=== PATIENT | female | born 1990 | race Caucasian/White ===

== ENCOUNTER 2018-10-06 22:23 | Inpatient (IN) ==
--- NOTE | 2018-10-06 22:44 | Emergency Department Note ---
Disposition Clinical Impression: Suicidal ideation Depression Qualifiers: Depression Type: unspecified Qualified Code(s): F32.9 - Major depressive disorder, single episode, unspecified UTI (urinary tract infection) Qualifiers: Urinary tract infection type: site unspecified Hematuria presence: with hematuria Qualified Code(s): N39.0 - Urinary tract infection, site not specified Disposition: Admitted As Inpatient Condition: Good Time of Disposition: 00:53 General Adult HPI - General Stated complaint: SI Time Seen by Provider: 10/06/18 22:24 Source: patient, EMS Mode of arrival: EMS Limitations: no limitations Nursing Notes Reviewed: Yes Vital Signs Reviewed: Yes - History of Present Illness HPI Narrative: Patient is a 28 female that presents emergency department with suicidal ideation. Patient states that she has been feeling very depressed and does not want to live anymore. Patient states that she has been off her depression medication due to them being too expensive and she has been feeling well. Patient states that she does have a plan but she will not disclose it to anyone. Patient states that she has had previous attempts at harming herself including attempting to swerve into traffic. Patient states that she has never required admission. Patient states that her mother is a social security assessor and has not wanted her to be admitted before. Patient denies any ingestions. Patient denies any auditory or visual hallucinations. Patient denies any homicidal ideations. Pain Scale: 0 - Related Data Allergies Allergy/AdvReac Type Severity Reaction Status Date / Time Oxycodone Allergy Hallucinati Verified 09/20/18 12:05 ng prednisone Allergy Hallucinati Verified 09/20/18 12:05 ng All systems ED: reviewed and negative except as stated. Constitutional: Denies: fever Cardiovascular: Denies: chest pain Respiratory: Denies: dyspnea Gastrointestinal: Denies: abdominal pain Psychiatric: Reports: depression, suicidal thoughts. 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 Absent: EOMI - Neck Neck exam: Present: normal inspection, full ROM, trachea midline - Respiratory Respiratory exam: Present: normal lung sounds bilaterally. Absent: respiratory distress, wheezes - Cardiovascular Cardiovascular exam: Present: regular rate, normal rhythm, normal heart sounds, +S1, +S2 - Abdominal Exam Abdominal exam: Present: soft, Non-Tender, normal bowel sounds - Neurological Exam Neurological exam: Present: alert, oriented X3 - Psychiatric Psychiatric exam: Present: normal affect, normal mood - Skin Skin exam: Present: warm, dry, intact Course Vital Signs Temperature 98.3 F 10/06/18 22:27 Pulse Rate 87 10/06/18 22:27 Respiratory Rate 18 10/06/18 22:27 Blood Pressure 150/101 10/06/18 22:27 O2 Sat by Pulse Oximetry 99 10/06/18 22:27 Temperature 98.3 F 10/06/18 22:27 Pulse Rate 87 10/06/18 22:27 Respiratory Rate 18 10/06/18 22:27 Blood Pressure 150/101 10/06/18 22:27 O2 Sat by Pulse Oximetry 99 10/06/18 22:27 Oxygen Delivery Oxygen Delivery Room Air Medical Decision Making - MDM Narrative Medical decision making narrative: Due the patient's into the emergency department suicidal ideation basic laboratory testing and medical clearance will be performed here in the ER once this is been completed [facility] the psychiatric service will be contacted to evaluate the patient at bedside. Patient did have evidence of a possible urinary tract infection so the patient was given a dose of Keflex here in the emergency department. [facility] was contacted to notify them that the patient was medically cleared and able to be assessed at bedside. Patient was assessed by [facility] psychiatric team here at [facility] and they have recommended admission for the patient. Patient will be admitted to the hospital for psychiatric services. Nason slip has been filled out as on the chart. No further intervention is required here in the emergency department. Patient is stable and will be admitted at this time. - Medical Records Medical records reviewed: Yes I reviewed the patient's medical records. - Lab Data Lab results reviewed: Yes I reviewed the patient's lab results. Result diagrams: 10/06/18 22:52 10/06/18 22:52 Lab Results 10/06/18 10/06/18 10/06/18 Range/Units 22:52 22:52 23:17 WBC 11.9 H (4.3-11.1) K/mcL RBC 5.12 H (3.82-4.97) M/mcL Hgb 14.5 (11.5-15.4) g/dL Hct 43.2 (35.3-44.9) % MCV 84.4 (83.0-100.0) fL MCH 28.3 (28.0-33.3) pg MCHC 33.6 (31.6-35.5) g/dL RDW 12.3 (11.5-14.5) % Plt Count 397 (140-400) K/mcL MPV 9.5 (9.4-12.4) fL Immature Gran % 0.6 (0-4) % Seg Neutrophils % 70.3 % Lymphocytes % 21.9 % Monocytes % 6.0 % Eosinophils % 0.8 % Basophils % 0.4 % Neutrophils # 8.4 (1.6-8.9) K/mcL Lymphocytes # 2.6 (0.6-4.6) K/mcL Monocytes # 0.7 (0.0-1.3) K/mcL Eosinophils # 0.1 (0.0-0.6) K/mcL Basophils # 0.1 (0.0-0.2) K/mcL Sodium 138 (136-145) mEq/L Potassium 3.8 (3.5-5.1) mEq/L Chloride 106 (98-107) mEq/L Carbon Dioxide 23 (23-29) mEq/L BUN 8 (6-20) mg/dL Creatinine 0.50 L (0.60-1.20) mg/dL Est GFR ( Amer) > 60 (> 60) Est GFR (Non-Af Amer) > 60 (> 60) BUN/Creatinine Ratio 16 (6-26) Glucose 97 (70-105) mg/dL Calculated Osmolality 284 (280-300) Calcium 9.5 (8.6-10.3) mg/dL Urine Color Yellow (Yellow) Urine Clarity Cloudy A (Clear) Urine pH 6.0 (5.0-8.0) pH Units Ur Specific [place] 1.013 (1.010-1.025) Urine Protein Trace (Neg-Trace) mg/dL Urine Glucose (UA) Normal (Normal) mg/dL Urine Ketones Negative (Negative) mg/dL Urine Blood Trace H (Negative) Urine Nitrite Negative (Negative) Urine Bilirubin Negative (Negative) Urine Urobilinogen Normal (Normal) mg/dL Ur Leukocyte Esterase Large H (Negative) Urine Microscopic RBC 0-3 (0-3) per hpf Urine Microscopic WBC TNTC H (0-3) per hpf Ur Squamous Epith Cells Many H (None-Few) per lpf Urine Bacteria Moderate H (None-Few) per hpf Hyaline Casts None Seen (None-Few) per lpf Salicylates < 2.5 L (15.0-30.0) mg/dL Urine Opiates Screen (Courva=452) ng/mL Acetaminophen < 10 L (10-20) mcg/mL Ur Barbiturates Screen (Wfdiqh=231) ng/mL Ur Phencyclidine Scrn (Cutoff=25) ng/mL Ur Amphetamines Screen (Qiebrs=3571) ng/mL U Benzodiazepines Scrn (Hcfxam=842) ng/mL Urine Cocaine Screen (Cutoff= 300) ng/mL U Marijuana (THC) Screen (Cutoff = 50) ng/mL Ur Drug Screen Interp Ethyl Alcohol < 10 (Less than 10) mg/dL 10/06/18 Range/Units 23:17 WBC (4.3-11.1) K/mcL RBC (3.82-4.97) M/mcL Hgb (11.5-15.4) g/dL Hct (35.3-44.9) % MCV (83.0-100.0) fL MCH (28.0-33.3) pg MCHC (31.6-35.5) g/dL RDW (11.5-14.5) % Plt Count (140-400) K/mcL MPV (9.4-12.4) fL Immature Gran % (0-4) % Seg Neutrophils % % Lymphocytes % % Monocytes % % Eosinophils % % Basophils % % Neutrophils # (1.6-8.9) K/mcL Lymphocytes # (0.6-4.6) K/mcL Monocytes # (0.0-1.3) K/mcL Eosinophils # (0.0-0.6) K/mcL Basophils # (0.0-0.2) K/mcL Sodium (136-145) mEq/L Potassium (3.5-5.1) mEq/L Chloride (98-107) mEq/L Carbon Dioxide (23-29) mEq/L BUN (6-20) mg/dL Creatinine (0.60-1.20) mg/dL Est GFR ( Amer) (> 60) Est GFR (Non-Af Amer) (> 60) BUN/Creatinine Ratio (6-26) Glucose (70-105) mg/dL Calculated Osmolality (280-300) Calcium (8.6-10.3) mg/dL Urine Color (Yellow) Urine Clarity (Clear) Urine pH (5.0-8.0) pH Units Ur Specific [place] (1.010-1.025) Urine Protein (Neg-Trace) mg/dL Urine Glucose (UA) (Normal) mg/dL Urine Ketones (Negative) mg/dL Urine Blood (Negative) Urine Nitrite (Negative) Urine Bilirubin (Negative) Urine Urobilinogen (Normal) mg/dL Ur Leukocyte Esterase (Negative) Urine Microscopic RBC (0-3) per hpf Urine Microscopic WBC (0-3) per hpf Ur Squamous Epith Cells (None-Few) per lpf Urine Bacteria (None-Few) per hpf Hyaline Casts (None-Few) per lpf Salicylates (15.0-30.0) mg/dL Urine Opiates Screen Negative (Ifpavx=498) ng/mL Acetaminophen (10-20) mcg/mL Ur Barbiturates Screen Negative (Xrtogl=315) ng/mL Ur Phencyclidine Scrn Negative (Cutoff=25) ng/mL Ur Amphetamines Screen Negative (Kqtjke=2693) ng/mL U Benzodiazepines Scrn Negative (Ifshqi=213) ng/mL Urine Cocaine Screen Negative (Cutoff= 300) ng/mL U Marijuana (THC) Screen Negative (Cutoff = 50) ng/mL Ur Drug Screen Interp See Below Ethyl Alcohol (Less than 10) mg/dL Attestation Statement - Attestation Attestation: I, Wili El, examined this patient and my medical decision-making was reviewed with the EDGE STRIPPER/PA/Advanced Practice Nurse/Resident Physician. I agree with the documented findings, disposition and treatment plan as described except to the extent set forth below. 28-year-old female presents emergency Department with concerns of suicidal i deation. Patient states she had a plan to try to end her life today, she will discuss the plan that she had. She has not been taking her depression medications for many weeks because she cannot afford them. Patient denies recent attempts to end her life. Denies recent trauma. She made a comment to her mother that she was "done", mother who is a social security assessor called EMS to come and evaluate her. Patient was medically cleared and evaluated by behavioral health who agreed that she required inpatient treatment for her depression and suicidal ideation.
[2018-10-06 23:07] LABS: Basophils # 0.1 K/mcL (0.0-0.2); Basophils % 0.4 %; Eosinophils # 0.1 K/mcL (0.0-0.6); Eosinophils % 0.8 %; Hematocrit 43.2 % (35.3-44.9); Hemoglobin 14.5 g/dL (11.5-15.4); Immature Granulocytes % 0.6 % (0-4); Lymphocytes # 2.6 K/mcL (0.6-4.6); Lymphocytes % 21.9 %; Mean Corpuscular HGB Conc 33.6 g/dL (31.6-35.5); Mean Corpuscular Hemoglobin 28.3 pg (28.0-33.3); Mean Corpuscular Volume 84.4 fL (83.0-100.0); Mean Platelet Volume 9.5 fL (9.4-12.4); Monocytes # 0.7 K/mcL (0.0-1.3); Neutrophils # 8.4 K/mcL (1.6-8.9); Platelet Count 397 K/mcL (140-400); Red Blood Count 5.12 M/mcL (3.82-4.97); Red Cell Distribution Width 12.3 % (11.5-14.5); Segmented Neutrophils % 70.3 %
[2018-10-06 23:25] LABS: Bilirubin,Urine Negative (Negative); Blood,Urine Trace (Negative); Clarity,Urine Cloudy (Clear); Color,Urine Yellow (Yellow); Glucose,Urine (UA) Normal (Normal); Ketones,Urine Negative (Negative); Leukocyte Esterase,Urine Large (Negative); Nitrite,Urine Negative (Negative); Protein,Urine Trace mg/dL (Neg-Trace); Specific Gravity,Urine 1.013 (1.010-1.025); Urobilinogen,Urine Normal (Normal)
[2018-10-06 23:27] LABS: Acetaminophen < 10 mcg/mL (10-20); BUN/Creatinine Ratio 16 (6-26); Blood Urea Nitrogen 8 mg/dL (6-20); Calcium 9.5 mg/dL (8.6-10.3); Carbon Dioxide 23 mEq/L (23-29); Chloride 106 mEq/L (98-107); Ethanol < 10 mg/dL (Less than 10); Glucose 97 mg/dL (70-105); Osmolality,Calculated 284 (280-300); Potassium 3.8 mEq/L (3.5-5.1); Salicylate < 2.5 mg/dL (15.0-30.0); Sodium 138 mEq/L (136-145); eGFR For Non-African Americans > 60 (> 60)
[2018-10-06 23:28] LABS: Bacteria,Urine Moderate per hpf (None-Few); Hyaline Casts,Urine None Seen per lpf (None-Few); RBC,Urine 0-3 per hpf (0-3); Squamous Epithelial Cell,Urine Many per lpf (None-Few); WBC,Urine TNTC per hpf (0-3)
[2018-10-06] MEDS ORDERED: cephALEXin 250 MG CAPSULE PO STA (23:39)
[2018-10-06 23:41] LABS: Amphetamine Screen,Urine Negative ng/mL (Cutoff=1000); Barbiturate Screen,Urine Negative ng/mL (Cutoff=200); Benzodiazepines Screen,Urine Negative ng/mL (Cutoff=200); Cannabinoid Screen,Urine Negative ng/mL (Cutoff = 50); Cocaine Screen,Urine Negative ng/mL (Cutoff= 300); Opiate Screen,Urine Negative ng/mL (Cutoff=300); Phencyclidine Screen,Urine Negative ng/mL (Cutoff=25)
[2018-10-07] MEDS ORDERED: traZODone 50 MG TABLET PO PRN (01:08)
[2018-10-07] MEDS ORDERED: *HR* LORazepam 1 MG TABLET PO PRN (01:08)
[2018-10-07] MEDS ORDERED: Ibuprofen 400 MG TABLET PO PRN (01:08)
[2018-10-07] MEDS ORDERED: MOM Conc 10 ML UD.LIQ PO PRN (01:08)
[2018-10-07] MEDS ORDERED: *HR* LORazepam 2 MG/ML VIAL IM PRN (01:08)
[2018-10-07] MEDS ORDERED: hydrOXYzine pamoate 25 MG CAPSULE PO PRN (01:08)
[2018-10-07] MEDS ORDERED: Haloperidol Lactate 5 MG/ML VIAL IM PRN (01:08)
[2018-10-07] MEDS ORDERED: Mag Hydrox/Al Hydrox/Simeth 30 ML UDC PO PRN (01:08)
[2018-10-07] MEDS: cephALEXin 500 MG CAPSULE PO SCH ×2 (08:57→20:41)
--- NOTE | 2018-10-07 14:50 | Psychiatry History & Physical ---
Date of Encounter: 10/07/18 Time of Encounter: 14:30 History of Present Illness Patient Stated Chief Complaint: I was on Wellbtrin, I went off, I was going to kill myself Medicare Admission Attestation: For traditional Medicare patients the provided hospital inpatient services are reasonable and necessary and in the case of services not specified as inpatient-only under 42 CFR 419.22 (n), that they are appropriately provided as inpatient services in accordance 42 CFR 412.3. For Critical Access Hospital the patient may reasonably be expected to be discharged or transferred to a hospital within 96 hours after admission to the Critical Access Hospital. Admitted From: Emergency Dept Plans for Post Hospital Care: Home History of Present Illness: Ms. Nunes is a 28 year old female ID the patient is a 28-year-old single white female. Chief complaint I was on Wellbutrin since high school. History of present illness. The patient has been off and on the antidepressant most recently she cannot afford it. The patient was seen by Dr. Og until about 2011. He left practice and the patient was continued on Wellbutrin by her family doctor. The patient was also seen by another provider in the clinic and felt better. Patient has not been able to take Wellbutrin due to financial problems and insurance coverage. The patient has low self-esteem diminished interest guilt ruminations somatic concern decreased energy poor concentration and forgetfulness medium sleep increased suicidal ideation with plans her plan was to go find a gun and shoot herself she had no homicidal ideation she had no psychosis the patient did not have any of the features of camryn DI GAF AST past psychiatric history. The patient's suicidal ideation she previously. The road. Months ago she was going to shoot herself. A friend came in and she got rid of the gun. The patient used to have a problem drinking alcohol she is to go out every weekend. She had 2 drinks a couple weeks ago but has not had any sense. She does not use marijuana she does not use drugs abuse. Past medical history: Surgery. Patient's had 6 knee surgeries. 5 on the left she has no ACL detected from 2006 through 2012 she has 1 right. There is a long litany of problems associated with her knees. She has had her tonsils and adenoids taken out she said wisdom teeth removed Illnesses polycystic ovary disease recurrent yeast infections urinary tract infections she had a sleep study where she was diagnosed with sleep apnea but could not tolerate CPAP. She has an allergy to nickel she is found to peanuts. Certain other medicines. Oxycodone and prednisone. She is AB 0. She has not used any control believes that she has problems with infertility. She was placed on metformin for polycystic ovary d isease but developed loose bowels and could not take it. The patient takes ibuprofen 800 mg 3 times a day when necessary she Family history mother with depression on Wellbutrin maternal grandmother depressed on Wellbutrin. Dad with depression unknown treatment. Alcohol none suicide Drug use none. Social history patient was never she has no children she lives by herself. 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 She does not attend restorationist Review of systems is significant for recurrent yeast infections. In the past the patient was on Concerta 54 mg per day she was on Wellbutrin XL 300 mg per day Past Med Surg Social Fam HX - Past Medical History Medical history: non-contributory - Past Psychiatric History Psychiatric history: Reports: depression Family psychiatric history: Yes Family History of Suicide: None - Past Surgical History Surgical History: no surgical history, cholecystectomy, orthopedic, other - Social History Smoking Status: Never smoker Smokeless Tobacco Status: No Alcohol use: occasionally Drug use: none Occupational status: employed, student Current living situation: Home - Independent Activity Level: Independent ambulation Recent Out of Country Travel Within the Last 8 Weeks: No Exposure or Possible Exposure to Illness During Travel: No Medications & Allergies Ibuprofen 800 mg PO Q8H PRN 10/07/18 [History] Allergy/AdvReac Type Severity Reaction Status Date / Time Oxycodone Allergy Hallucinati Verified 09/20/18 12:05 ng prednisone Allergy Hallucinati Verified 09/20/18 12:05 ng Review of Systems Constitutional: Reports: other Eyes: Denies: eye pain, vision change Ears, Nose, Throat: Denies: ear pain, throat pain, dental pain, hearing loss, congestion Cardiovascular: Denies: chest pain, palpitations, dyspnea on exertion Respiratory: Denies: cough, dyspnea, wheezes Gastrointestinal: Denies: abdominal pain, nausea, vomiting, diarrhea, constipation Genitourinary female: Denies: urgency, dysuria, frequency, abnormal menses, dyspareunia Musculoskeletal: Denies: joint swelling, joint pain Integumentary: Denies: rash, lesions, pruritus Neurological: Denies: headache, weakness, numbness, memory loss Psychiatric: Reports: depression, abnormal sleep pattern, suicidal ideation, memory loss, irritability Endocrine: Denies: fatigue, heat or cold intolerance Hematologic/Lymphatic: Denies: easy bruising, lymphadenopathy Allergic/Immunologic: Denies: urticaria, itchy eyes Exam - HEENT Head exam IM: Present: atraumatic Eye exam IM: Present: EOMI, normal appearance, PERRL ENT exam IM: Present: normal exam - Neurological Neurological exam: Present: CN II-XII intact - Respiratory Respiratory exam IM: Present: CTAB - GI/Abdominal GI/Abdominal exam IM: Present: normal bowel sounds, soft. Absent: tenderness - Extremities Extremities exam IM: Present: full ROM - Skin Skin exam IM: Present: dry, warm - Constitutional Vitals: Temp Pulse Resp BP Pulse Ox 98 F 95 16 154/105 95 10/07/18 09:00 10/07/18 09:00 10/07/18 09:00 10/07/18 09:00 10/07/18 09:00 General appearance: age & developmentally appropriate, well-groomed, well- nourished - Musculoskeletal Gait: normal Station: relaxed Strength & Tone: normal for patient - Psychiatric Patient Orientation: Yes Person, Yes Time, Yes Place Level of alertness: Alert Behavior: calm, cooperative Psychomotor activity: Normal Eye Contact: Maintains Eye Contact Mood Description: Depressed Affect description: tearful, dysphoric Speech Volume: Normal, Soft/Quiet Speech pattern: normal rate, normal rhythm, normal tone, fluent, spontaneous Language & Vocabulary: consistent with education Thought Process: Linear, Goal Oriented Thought Content: Yes Suicidal ideation, No Homicidal ideation, No Overt delusions Perceptual Disturbances: No Auditory hallucinations, No Visual hallucinations Attention Span Ability: Capable of Focused Attention Memory Description: Grossly Intact Patient Reliability: Reliable Historian Fund of knowledge: Yes abstraction ability, Yes average, Yes aware of current events Intelligence Estimate: Average Judgment: Fair Insight: Partial Results - Drug Levels and Toxicology Drug Levels and Toxicology: Drug Levels and Toxicity 10/06/18 10/06/18 22:52 23:17 Urine Opiates Screen Negative Acetaminophen < 10 L Ur Barbiturates Screen Negative Ur Phencyclidine Scrn Negative Ur Amphetamines Screen Negative U Benzodiazepines Scrn Negative Urine Cocaine Screen Negative U Marijuana (THC) Screen Negative Ethyl Alcohol < 10 - Labs Labs: Laboratory Last Values WBC 11.9 K/mcL (4.3-11.1) H 10/06/18 22:52 RBC 5.12 M/mcL (3.82-4.97) H 10/06/18 22:52 Hgb 14.5 g/dL (11.5-15.4) 10/06/18 22:52 Hct 43.2 % (35.3-44.9) 10/06/18 22:52 MCV 84.4 fL (83.0-100.0) 10/06/18 22:52 MCH 28.3 pg (28.0-33.3) 10/06/18 22:52 MCHC 33.6 g/dL (31.6-35.5) 10/06/18 22:52 RDW 12.3 % (11.5-14.5) 10/06/18 22:52 Plt Count 397 K/mcL (140-400) 10/06/18 22:52 MPV 9.5 fL (9.4-12.4) 10/06/18 22:52 Immature Gran % 0.6 % (0-4) 10/06/18 22:52 Seg Neutrophils % 70.3 % 10/06/18 22:52 Lymphocytes % 21.9 % 10/06/18 22:52 Monocytes % 6.0 % 10/06/18 22:52 Eosinophils % 0.8 % 10/06/18 22:52 Basophils % 0.4 % 10/06/18 22:52 Neutrophils # 8.4 K/mcL (1.6-8.9) 10/06/18 22:52 Lymphocytes # 2.6 K/mcL (0.6-4.6) 10/06/18 22:52 Monocytes # 0.7 K/mcL (0.0-1.3) 10/06/18 22:52 Eosinophils # 0.1 K/mcL (0.0-0.6) 10/06/18 22:52 Basophils # 0.1 K/mcL (0.0-0.2) 10/06/18 22:52 Sodium 138 mEq/L (136-145) 10/06/18 22:52 Potassium 3.8 mEq/L (3.5-5.1) 10/06/18 22:52 Chloride 106 mEq/L (98-107) 10/06/18 22:52 Carbon Dioxide 23 mEq/L (23-29) 10/06/18 22:52 BUN 8 mg/dL (6-20) 10/06/18 22:52 Creatinine 0.50 mg/dL (0.60-1.20) L 10/06/18 22:52 Est GFR ( Amer) > 60 (> 60) 10/06/18 22:52 Est GFR (Non-Af Amer) > 60 (> 60) 10/06/18 22:52 BUN/Creatinine Ratio 16 (6-26) 10/06/18 22:52 Glucose 97 mg/dL (70-105) 10/06/18 22:52 Calculated Osmolality 284 (280-300) 10/06/18 22:52 Calcium 9.5 mg/dL (8.6-10.3) 10/06/18 22:52 Urine Color Yellow (Yellow) 10/06/18 23:17 Urine Clarity Cloudy (Clear) A 10/06/18 23:17 Urine pH 6.0 pH Units (5.0-8.0) 10/06/18 23:17 Ur Specific [place] 1.013 (1.010-1.025) 10/06/18 23:17 Urine Protein Trace mg/dL (Neg-Trace) 10/06/18 23:17 Urine Glucose (UA) Normal mg/dL (Normal) 10/06/18 23:17 Urine Ketones Negative mg/dL (Negative) 10/06/18 23:17 Urine Blood Trace (Negative) H 10/06/18 23:17 Urine Nitrite Negative (Negative) 10/06/18 23:17 Urine Bilirubin Negative (Negative) 10/06/18 23:17 Urine Urobilinogen Normal mg/dL (Normal) 10/06/18 23:17 Ur Leukocyte Esterase Large (Negative) H 10/06/18 23:17 Urine Microscopic RBC 0-3 per hpf (0-3) 10/06/18 23:17 Urine Microscopic WBC TNTC per hpf (0-3) H 10/06/18 23:17 Ur Squamous Epith Cells Many per lpf (None-Few) H 10/06/18 23:17 Urine Bacteria Moderate per hpf (None-Few) H 10/06/18 23:17 Hyaline Casts None Seen per lpf (None-Few) 10/06/18 23:17 Salicylates < 2.5 mg/dL (15.0-30.0) L 10/06/18 22:52 Urine Opiates Screen Negative ng/mL (Rdwstv=172) 10/06/18 23:17 Acetaminophen < 10 mcg/mL (10-20) L 10/06/18 22:52 Ur Barbiturates Screen Negative ng/mL (Alzlwy=711) 10/06/18 23:17 Ur Phencyclidine Scrn Negative ng/mL (Cutoff=25) 10/06/18 23:17 Ur Amphetamines Screen Negative ng/mL (Oebjys=7968) 10/06/18 23:17 U Benzodiazepines Scrn Negative ng/mL (Ghhsuz=446) 10/06/18 23:17 Urine Cocaine Screen Negative ng/mL (Cutoff= 300) 10/06/18 23:17 U Marijuana (THC) Screen Negative ng/mL (Cutoff = 50) 10/06/18 23:17 Ur Drug Screen Interp See Below 10/06/18 23:17 Ethyl Alcohol < 10 mg/dL (Less than 10) 10/06/18 22:52 Assessment and Plan (1) Major depressive disorder, recurrent severe without psychotic features Current visit: Yes Status: Acute Plan: Admit inpatient for safety and stabilization, Close observation, Group Therapy, Monitor sleep, Monitor appetite Risks, benefits, side effects, alternatives discussed w/pt: Yes Patient agreeable to treatment: Yes Plans for Post Hospital Care: Home (2) Sleep apnea Current visit: Yes Status: Chronic Plan: Monitor sleep, Monitor appetite Risks, benefits, side effects, alternatives discussed w/pt: Yes Patient agreeable to treatment: Yes Plans for Post Hospital Care: Home Qualifiers: Sleep apnea type: unspecified type Qualified Code(s): G47.30 - Sleep apnea, unspecified (3) Suicidal ideation Current visit: Yes Status: Acute Plan: Suicide Precautions per unit protocol, Secure weapons Risks, benefits, side effects, alternatives discussed w/pt: Yes Patient agreeable to treatment: Yes Plans for Post Hospital Care: Home (4) UTI (urinary tract infection) Current visit: Yes Status: Acute Plan: Other Risks, benefits, side effects, alternatives discussed w/pt: Yes Patient agreeable to treatment: Yes Plans for Post Hospital Care: Home Qualifiers: Urinary tract infection type: site unspecified Hematuria presence: with hematuria Qualified Code(s): N39.0 - Urinary tract infection, site not specified; R31.9 - Hematuria, unspecified
[2018-10-07] MEDS: BuPROPion SR (12 HR) 150 MG TABLET PO SCH (15:37)
[2018-10-07] MEDS: Methylphenidate HCl 10 MG TABLET PO SCH (15:37)
[2018-10-08] MEDS: BuPROPion SR (12 HR) 150 MG TABLET PO SCH ×2 (09:34→17:58)
[2018-10-08] MEDS: cephALEXin 500 MG CAPSULE PO SCH ×2 (09:34→21:41)
[2018-10-08] MEDS: Methylphenidate HCl 10 MG TABLET PO SCH ×2 (09:34→12:21)
--- NOTE | 2018-10-08 13:37 | Psychiatry Progress Note ---
Date of Encounter: 10/08/18 Time of Encounter: 13:30 Subjective Interval history: The patient is a 28-year-old single white female. Chief complaint I still think about killing myself I am just working on a plan not to do it. History of present illness the patient was able to tolerate bupropion she had 1 dose of 150 mg of the sustained release. She noted no significant side effects such as headache or irritability. The patient had no difficulty with methylphenidate. She was able to take 10 mg twice a day. Today she is feeling a little bit better better organized and more spontaneous in her speech. The patient has made some decisions regarding her overall outlook she had a visit with her mother she talked about the possibility of filing for bankruptcy. She recognizes she has limited resources. She wants to focus on her education. In the past the patient had a tonsillectomy but a sleep study after that surgery detect sleep apnea. The patient has experienced weight gain as part of polycystic ovary disease. She could not tolerate metformin. She has had some issues with hair loss and irregular menses. The patient is agreeable to an increase in methylphenidate. She has sleep apnea but has not tolerated CPAP. She is aware that her side with the patient has significant knee pain may prevent this positioning and sleep. Review of Systems Psychiatric: Reports: depression, abnormal sleep pattern, suicidal ideation, memory loss, irritability Results - Vital Signs Vital Signs: Temp Pulse Resp BP Pulse Ox 97.6 F 82 14 137/87 95 10/08/18 08:09 10/08/18 08:09 10/08/18 08:09 10/08/18 08:09 10/08/18 08:09 Assessment and Plan (1) Major depressive disorder, recurrent severe without psychotic features Current visit: Yes Status: Acute Plan: Continue hospitalization, Close observation, Suicide Precautions per unit protocol, Encourage participation in unit milieu, Group Therapy, Monitor sleep, Monitor appetite, Secure weapons Risks, benefits, side effects, alternatives discussed w/pt: Yes Patient agreeable to treatment: Yes (2) Sleep apnea Current visit: Yes Status: Chronic Plan: Close observation, Group Therapy, Monitor sleep, Other Risks, benefits, side effects, alternatives discussed w/pt: Yes Patient agreeable to treatment: Yes Qualifiers: Sleep apnea type: unspecified type Qualified Code(s): G47.30 - Sleep apnea, unspecified (3) Suicidal ideation Current visit: Yes Status: Acute Plan: Close observation, Suicide Precautions per unit protocol Risks, benefits, side effects, alternatives discussed w/pt: Yes Patient agreeable to treatment: Yes (4) UTI (urinary tract infection) Current visit: Yes Status: Acute Plan: Continue hospitalization Risks, benefits, side effects, alternatives di scussed w/pt: Yes Patient agreeable to treatment: Yes Qualifiers: Urinary tract infection type: site unspecified Hematuria presence: with hematuria Qualified Code(s): N39.0 - Urinary tract infection, site not specified; R31.9 - Hematuria, unspecified Consult Discharge Plan - Plan Psychiatry Exam - Constitutional Vitals: Temp Pulse Resp BP Pulse Ox 97.6 F 82 14 137/87 95 10/08/18 08:09 10/08/18 08:09 10/08/18 08:09 10/08/18 08:09 10/08/18 08:09 General appearance: age & developmentally appropriate, well-groomed, well- nourished - Musculoskeletal Gait: normal Station: relaxed Strength & Tone: normal for patient - Psychiatric Patient Orientation: Yes Person, Yes Time, Yes Place Level of alertness: Alert Behavior: calm, cooperative Psychomotor activity: Normal Eye Contact: Maintains Eye Contact Mood Description: Euthymic/stable Affect description: congruent with mood, full range Speech Volume: Normal Speech pattern: normal rate, normal rhythm, normal tone, fluent, spontaneous Language & Vocabulary: consistent with education Thought Process: Linear, Goal Oriented Thought Content: Yes Suicidal ideation, No Homicidal ideation, No Overt delusions Perceptual Disturbances: No Auditory hallucinations, No Visual hallucinations Attention Span Ability: Capable of Focused Attention Memory Description: Grossly Intact Patient Reliability: Reliable Historian Fund of knowledge: Yes abstraction ability, Yes aware of current events Intelligence Estimate: Average Judgment: Limited Insight: Minimal
[2018-10-09] MEDS: cephALEXin 500 MG CAPSULE PO SCH ×2 (08:36→15:31)
[2018-10-09] MEDS: Methylphenidate HCl 10 MG TABLET PO SCH ×2 (08:36→12:02)
[2018-10-09] MEDS: BuPROPion SR (12 HR) 150 MG TABLET PO SCH (08:36)
[2018-10-09 09:15] VITALS: BP 135/86
--- NOTE | 2018-10-09 11:07 | Discharge Summary ---
Date of Encounter: 10/09/18 Time of Encounter: 11:00 Diagnosis - Discharge Diagnosis (1) Major depressive disorder, recurrent severe without psychotic features Priority: Primary Status: Acute (2) Sleep apnea Priority: Secondary Status: Chronic Qualifiers: Sleep apnea type: unspecified type Qualified Code(s): G47.30 - Sleep apnea, unspecified (3) Suicidal ideation Status: Resolved (4) UTI (urinary tract infection) Status: Resolved Qualifiers: Urinary tract infection type: site unspecified Hematuria presence: with hematuria Qualified Code(s): N39.0 - Urinary tract infection, site not specified; R31.9 - Hematuria, unspecified Medications - Discharge Medications Prescriptions: BuPROPion SR (12 HR) [Wellbutrin SR] 150 mg PO BIDWM 30 Days #60 tablet.er cephALEXin [Keflex] 500 mg PO BID 4 Days #8 capsule Ibuprofen 800 mg PO Q8H PRN 10/07/18 [History] BuPROPion SR (12 HR) [Wellbutrin SR] 150 mg PO BIDWM 30 Days #60 tablet.er 10/09/18 [Rx] Methylphenidate HCl [Ritalin] 20 mg PO 0800,1200 tablet 10/09/18 [Rx] cephALEXin [Keflex] 500 mg PO BID 4 Days #8 capsule 10/09/18 [Rx] Allergy/AdvReac Type Severity Reaction Status Date / Time Oxycodone Allergy Hallucinati Verified 09/20/18 12:05 ng prednisone Allergy Hallucinati Verified 09/20/18 12:05 ng Results Procedures and tests throughout hospitalization: Completed Lab Orders Category Date Time Status Acetaminophen Stat Lab 10/06/18 22:52 Completed Basic Metabolic Panel Stat Lab 10/06/18 22:52 Completed Complete Blood Count [HEME] Stat Lab 10/06/18 22:52 Completed Drug Screen, Urine [UCHEM] Stat Lab 10/06/18 23:17 Completed Ethanol Stat Lab 10/06/18 22:52 Completed Salicylate Stat Lab 10/06/18 22:52 Completed Urinalysis reflex Microscopic [URIN] Stat Lab 10/06/18 23:17 Completed Provider Date of admission: 10/07/18 01:02 Primary care physician: PCP NONE Discharging clinician: Bigg Melo Psychiatry Exam - Constitutional Vitals: Temp Pulse Resp BP Pulse Ox 98.3 F 86 16 135/86 98 10/09/18 09:00 10/09/18 09:00 10/09/18 09:00 10/09/18 09:00 10/09/18 09:00 General appearance: age & developmentally appropriate, well-groomed, well- nourished, obese - Musculoskeletal Gait: normal Station: relaxed Strength & Tone: normal for patient - Psychiatric Patient Orientation: Yes Person, Yes Time, Yes Place Level of alertness: Alert Behavior: calm, cooperative Psychomotor activity: Normal Eye Contact: Maintains Eye Contact Mood Description: Anxious Affect description: congruent with mood, full range, anxious Speech Volume: Normal Speech pattern: normal rate, normal rhythm, normal tone, fluent, spontaneous Language & Vocabulary: consistent with education Thought Process: Linear, Goal Oriented Thought Content: No Suicidal ideation, No Homicidal ideation, No Overt delusions Perceptual Disturbances: No Auditory hallucinations, No Visual hallucinations Attention Span Ability: Capable of Focused Attention Memory Description: Grossly Intact Patient Reliability: Reliable Historian Fund of knowledge: Yes abstraction ability, Yes aware of current events Judgment: Good Insight: Full Hospital Course Hospital course: Ms. Nunes is a 28 year old female Chief complaint: I was going to drive off the road or borrow a gun and shoot myself. I do not feel like that now History of present illness the patient was admitted for major depression that is recurrent. The patient has had multiple episodes of depression. The patient had some suicidal behavior prior to admission but of concern was the patient's suicidal ideation.. The patient met criteria for major depressive disorder. Patient previously been on the medicine bupropion but was unable to afford it or to follow-up with providers to prescribe it. The patient had a favorable response to bupropion. This medicine was started in the most inexpensive generic form that is bupropion SR 150 mg twice a day. The patient tolerated t his medicine and was instructed to take this at mealtimes. She reported no side effects. The patient had a history of sleep apnea. She was on no treatment and previously could not tolerate CPAP. She had multiple features of sleep apnea and symptoms of sleep apnea including decreased concentration attention and activity. The patient also has polycystic ovarian disease. The patient tolerated a gradual increase of methylphenidate up to 20 mg twice a day. Although she had some nervousness. Patient tolerated without significant elevation in blood pressure. The patient previously been on Concerta for attentional problems. The patient had a urinary tract infection at the time of admission. The patient was being treated with Keflex and will have a prescription to go home with complete the course of antibiotics. The patient participated in groups she had visitors receive social support. The suicidal ideation got better after the time of admission by the time discharge patient had no plans for suicide and had no recurrent suicide ideation. She was working on a plan to address some of her educational financial and other concerns. The patient requests to go back to work on 10/13/2018 and this is necessary as she works a late shift and adjustment to the medicine and the times dosing would be necessary. This was discussed with her. - Time Spent with Patient Total time spent providing and/or coordinating discharge services: Less than 30 minutes Assessment and Plan - Patient/Caregiver Discharge Instructions Activity: resume usual activities as tolerated, return to work Diet: regular diet - Follow up Plan Follow up with: Sally Zamudio [facility] [Outside] - 10/20/18 8:30 am (The above appointment is with Khushboo Case. Please complete and bring the [facility] intake packet you were provided at the hospital to this appointment. When you come to your first appointment, you will be meeting with business office staff, meeting with a counselor, and developing a treatment plan. You will receive follow- up appoi ntments for on-going services, which could include community support, mental health and substance abuse counseling, groups/partial hospitalization programming and medication assisted treatment. You will also need to bring the following to your first appointment as well: 1) proof of household income (two consecutive pay stubs, social security award letter, bank statement, statement letter from [facility], child support statement, IRS 1040 or W2 form, or a statement from the person who financially supports you stating they help provide for your basic needs), 2) proof of residency (drivers license, a piece of mail showing your address, a statement from person you live with verifying you live at their address), 3) photo ID, 4) your insurance card (if you have commercial insurance you must call to obtain a prior authorization number before you arrive to your first appointment) and 5) if you do not have insurance but have applied for Medicaid, please bring verification you have applied. The above appointment(s) reflects first availability. You may contact the office regularly to check for cancellations that may allow you to be seen sooner.) Herminia Neves, VIOLET [Advanced Practice Nurse] - 10/15/18 1:00 pm (The above above appointment is with Herminia Neves for primary healthcare and medication management services.) Functional capacity at discharge: independent ambulation Overall status at discharge: Stable Disposition: Home, Self-Care Quality - Multiple Antipsychotics Patient discharged on 2 or more antipsychotic medications: No Procedures - Procedures Procedures: Medication Management, Crisis Stabilization, Supportive Therapy, Group Therapy, Psychoeducational Therapy
== END 2018-10-09 16:55 | disposition home or self-care (01) | DRG 885 ==
LOC: EMEROOARM 22:23 → 1ANU 10-07 01:02
PROVIDERS: ADMIT Psychiatry & Neurology Forensic Psychiatry; ATTEND Psychiatry & Neurology Forensic Psychiatry

== ENCOUNTER 2021-06-04 08:46 | Observation (INO) ==
[2021-06-04 09:33] LABS: Bacteria,Urine Few per hpf (None-Few); Bilirubin,Urine Negative (Negative); Blood,Urine Large (Negative); Clarity,Urine Turbid (Clear); Color,Urine Yellow (Yellow); Glucose,Urine (UA) Normal (Normal); Ketones,Urine Negative (Negative); Leukocyte Esterase,Urine Large (Negative); Mucus,Urine Few per lpf (None-Few); Nitrite,Urine Negative (Negative); Protein,Urine Trace mg/dL (Neg-Trace); Specific Gravity,Urine 1.025 (1.010-1.025); Squamous Epithelial Cell,Urine Moderate per hpf (None-Few); Urobilinogen,Urine Normal (Normal)
[2021-06-04 10:11] LABS: Basophils % 0.3 %; Eosinophils # 0.1 K/mcL (0.0-0.6); Eosinophils % 1.5 %; Hematocrit 37.8 % (35.3-44.9); Hemoglobin 12.2 g/dL (11.5-15.4); Lymphocytes # 2.5 K/mcL (0.6-4.6); Mean Corpuscular HGB Conc 32.3 g/dL (31.6-35.5); Mean Corpuscular Hemoglobin 27.3 pg (28.0-33.3); Mean Corpuscular Volume 84.6 fL (83.0-100.0); Mean Platelet Volume 9.6 fL (9.4-12.4); Monocytes # 0.5 K/mcL (0.0-1.3); Monocytes % 5.9 %; Neutrophils # 5.9 K/mcL (1.6-8.9); Platelet Count 272 K/mcL (140-400); Red Blood Count 4.47 M/mcL (3.82-4.97); Red Cell Distribution Width 13.2 % (11.5-14.5); Segmented Neutrophils % 64.3 %; White Blood Count 9.2 K/mcL (4.3-11.1)
[2021-06-04 10:20] LABS: Protein/Creatinine Ratio,Urine 0.22 mg/mg (0.00-0.20)
[2021-06-04 10:30] LABS: Alanine Aminotransferase 21 Units/L (7-52); Aspartate Amino Transferase 21 Units/L (13-39); BUN/Creatinine Ratio 13 (6-26); Blood Urea Nitrogen 5 mg/dL (6-20); Lactate Dehydrogenase 124 Units/L (140-271); Uric Acid 4.6 mg/dL (2.3-7.6); eGFR For African Americans > 60 (> 60); eGFR For Non-African Americans > 60 (> 60)
[2021-06-04 10:40] LABS: Candida DNA Not Detected (Not Detect); Gardnerella DNA DETECTED (Not Detect); Trichomonas DNA Not Detected (Not Detect)
== END 2021-06-04 13:44 | disposition home or self-care (01) ==
LOC: 1NENULAB
PROVIDERS: ADMIT Obstetrics & Gynecology; ATTEND Obstetrics & Gynecology

== ENCOUNTER → 2021-07-05 23:15 | Observation (INO) ==
[2021-07-05 20:59] LABS: Bilirubin,Urine Negative (Negative); Blood,Urine Negative (Negative); Clarity,Urine Turbid (Clear); Color,Urine Yellow (Yellow); Glucose,Urine (UA) Normal (Normal); Ketones,Urine 80 mg/dL (Negative); Leukocyte Esterase,Urine Large (Negative); Nitrite,Urine Negative (Negative); Protein,Urine Trace mg/dL (Neg-Trace); Specific Gravity,Urine 1.026 (1.010-1.025); Urobilinogen,Urine Normal (Normal)
[2021-07-05 21:15] LABS: Alanine Aminotransferase 21 Units/L (7-52); Albumin 3.8 g/dL (3.5-5.7); Albumin/Globulin Ratio 1.1 (1.1-2.2); Alkaline Phosphatase 82 Units/L (34-104); Aspartate Amino Transferase 22 Units/L (13-39); BUN/Creatinine Ratio 15 (6-26); Bilirubin,Total 0.4 mg/dL (0.3-1.0); Blood Urea Nitrogen 7 mg/dL (6-20); Calcium 9.5 mg/dL (8.6-10.3); Carbon Dioxide 20 mEq/L (23-29); Chloride 104 mEq/L (98-107); Globulin 3.4 g/dL (2.4-3.5); Glucose 74 mg/dL (70-105); Osmolality,Calculated 279 (280-300); Potassium 3.6 mEq/L (3.5-5.1); Sodium 136 mEq/L (136-145); Total Protein 7.2 g/dL (6.4-8.9); eGFR For African Americans > 60 (> 60); eGFR For Non-African Americans > 60 (> 60)
[2021-07-05 21:17] LABS: Bacteria,Urine Few per hpf (None-Few); Squamous Epithelial Cell,Urine Moderate per hpf (None-Few); WBC,Urine 15-30 per hpf (0-3)
[~2021-07-05 23:15] MED LIST: D5% in Lactated Ringers 1,000 ML IVC SCH; Ondansetron 4 MG/2 ML VIAL IVP ONE; ceFAZolin 1,000 MG in Water for inj. (sterile) 10 ML IVP ONE
== END | disposition home or self-care (01) ==
LOC: 1NENULAB
PROVIDERS: ADMIT Obstetrics & Gynecology; ATTEND Obstetrics & Gynecology

== ENCOUNTER → 2021-08-29 13:41 | Observation (INO) ==
[2021-08-29 11:20] LABS: Bacteria,Urine Few per hpf (None-Few); Bilirubin,Urine Negative (Negative); Blood,Urine Negative (Negative); Clarity,Urine Clear (Clear); Color,Urine Light-Yellow (Yellow); Glucose,Urine (UA) Normal (Normal); Ketones,Urine Negative (Negative); Leukocyte Esterase,Urine Moderate (Negative); Nitrite,Urine Negative (Negative); PH,Urine 6.5 pH Units (5.0-8.0); Protein,Urine Negative (Neg-Trace); RBC,Urine 0-3 per hpf (0-3); Squamous Epithelial Cell,Urine Few per hpf (None-Few); Urobilinogen,Urine Normal (Normal); WBC,Urine 0-3 per hpf (0-3)
== END | disposition home or self-care (01) ==
LOC: 1NENULAB
PROVIDERS: ADMIT Advanced Practice Midwife; ATTEND Advanced Practice Midwife

== ENCOUNTER 2021-09-08 09:30 | Observation (INO) ==
[2021-09-08] MEDS ORDERED: Ringers Solution, Lactated 1,000 ML IVC ONE (10:43)
== END 2021-09-08 11:14 | disposition home or self-care (01) ==
LOC: 1NENULAB
PROVIDERS: ADMIT Obstetrics & Gynecology; ATTEND Obstetrics & Gynecology

== ENCOUNTER 2021-09-11 11:29 | Inpatient (IN) ==
[~2021-09-11 11:29] MED LIST changes: +CeFAZolin Syr 3,000MG/30 ML 3,000 MG/30 ML SYRINGE IVPB ONE; -D5% in Lactated Ringers 1,000 ML IVC SCH; +Famotidine 20 MG/2 ML VIAL IVP ONE; +Metoclopramide 10 MG/2 ML VIAL IVP ONE; -Ondansetron 4 MG/2 ML VIAL IVP ONE; +Oxytocin 20 units/ LR 1000 mL 20 UNIT/1,000 ML BAG IVC ONE; +Ringers Solution, Lactated 1,000 ML IVC ONE; -ceFAZolin 1,000 MG in Water for inj. (sterile) 10 ML IVP ONE
[2021-09-11] MEDS ORDERED: Ringers Solution, Lactated 1,000 ML IVC SCH ×2 (11:30→20:33)
[2021-09-11] MEDS ORDERED: Oxytocin 20 units/ LR 1000 mL 20 UNIT/1,000 ML BAG IVC SCH ×2 (11:30→20:33)
[2021-09-11] MEDS ORDERED: Ringers Solution, Lactated 1,000 ML ONE (11:33)
[2021-09-11] MEDS ORDERED: Ondansetron 4 MG/2 ML VIAL IVP PRN ×2 (11:40→20:33)
[2021-09-11] MEDS ORDERED: Ondansetron 4 MG/2 ML VIAL ONE ×2 (11:41→16:53)
[2021-09-11] MEDS ORDERED: Azithromycin 500 MG in 0.9 % Sodium Chloride 250 ML IVPB ONE (11:47)
[2021-09-11 11:59] LABS: Basophils % 0.2 %; Eosinophils # 0.1 K/mcL (0.0-0.6); Eosinophils % 0.6 %; Hematocrit 39.1 % (35.3-44.9); Hemoglobin 13.1 g/dL (11.5-15.4); Immature Granulocytes % 0.4 % (0-4); Lymphocytes # 2.6 K/mcL (0.6-4.6); Mean Corpuscular HGB Conc 33.5 g/dL (31.6-35.5); Mean Corpuscular Hemoglobin 28.1 pg (28.0-33.3); Mean Corpuscular Volume 83.9 fL (83.0-100.0); Mean Platelet Volume 10.7 fL (9.4-12.4); Monocytes # 0.6 K/mcL (0.0-1.3); Monocytes % 5.8 %; Neutrophils # 7.5 K/mcL (1.6-8.9); Platelet Count 307 K/mcL (140-400); Red Blood Count 4.66 M/mcL (3.82-4.97); Red Cell Distribution Width 13.7 % (11.5-14.5); White Blood Count 10.9 K/mcL (4.3-11.1)
[2021-09-11] MEDS ORDERED: Penicillin G Potassium 5,000,000 UNIT in 0.9 % Sodium Chloride Mini Bag 100 ML IVPB ONE (12:00)
[2021-09-11] MEDS ORDERED: Betamethasone Acet/SodPhos 30 MG/5 ML VIAL IM SCH (12:15)
[2021-09-11 12:22] LABS: Bacteria,Urine Few per hpf (None-Few); Bilirubin,Urine Negative (Negative); Blood,Urine Negative (Negative); Clarity,Urine Turbid (Clear); Color,Urine Yellow (Yellow); Glucose,Urine (UA) Normal (Normal); Ketones,Urine Negative (Negative); Leukocyte Esterase,Urine Small (Negative); Mucus,Urine Few per lpf (None-Few); Nitrite,Urine Negative (Negative); Protein,Urine Trace mg/dL (Neg-Trace); RBC,Urine 0-3 per hpf (0-3); Specific Gravity,Urine 1.023 (1.010-1.025); Squamous Epithelial Cell,Urine Moderate per hpf (None-Few); Urobilinogen,Urine Normal (Normal)
[2021-09-11 12:25] LABS: Candida DNA Not Detected (Not Detect); Gardnerella DNA Not Detected (Not Detect); Trichomonas DNA Not Detected (Not Detect)
[2021-09-11 13:04] LABS: Amphetamine Screen,Urine Negative ng/mL (Cutoff=1000); Barbiturate Screen,Urine Negative ng/mL (Cutoff=200); Benzodiazepines Screen,Urine Negative ng/mL (Cutoff=200); Cannabinoid Screen,Urine Negative ng/mL (Cutoff = 50); Cocaine Screen,Urine Negative ng/mL (Cutoff= 300); Opiate Screen,Urine Negative ng/mL (Cutoff=300); Phencyclidine Screen,Urine Negative ng/mL (Cutoff=25)
[2021-09-11 13:22] LABS: Influenza A PCR Negative (Negative); Influenza B PCR Negative (Negative); Resp. Syncytial Virus PCR Negative (Negative)
[2021-09-11 13:27] LABS: SARS-CoV-2 by PCR (In House) Negative (Negative)
[2021-09-11] MEDS ORDERED: Penicillin G Potassium 2,500,000 UNIT/105 ML MLS IVPB SCH (16:00)
[2021-09-11] MEDS ORDERED: Oxytocin 20 units/ LR 1000 mL 20 UNIT/1,000 ML BAG IVC ONE (16:15)
[2021-09-11] MEDS ORDERED: Metoclopramide 10 MG/2 ML VIAL ONE (16:15)
[2021-09-11] MEDS ORDERED: *HR* Morphine Sulfate/PF 10 MG/10 ML AMPUL ONE (16:40)
[2021-09-11] MEDS ORDERED: *HR* FentaNYL (PF) 100 MCG/2 ML VIAL ONE (16:40)
[2021-09-11] MEDS ORDERED: EPHEDrine 50 MG/ML VIAL ONE (16:42)
[2021-09-11] MEDS ORDERED: Acetaminophen IV 1,000 MG/100 ML BAG IVPB ONE (16:53)
[2021-09-11] MEDS ORDERED: Ketorolac 30 MG/ML VIAL ONE (16:53)
[2021-09-11] MEDS ORDERED: Metoclopramide 10 MG/2 ML VIAL IVP PRN (20:33)
[2021-09-11] MEDS ORDERED: *HR* OxyCODONE Immed Rel 5 MG TABLET PO PRN (20:33)
[2021-09-11] MEDS ORDERED: Rho Immune Globulin 1,500 UNIT SYRINGE IM ONE (20:33)
[2021-09-11] MEDS ORDERED: Simethicone 80 MG TAB.CHEW PO PRN (20:33)
[2021-09-11] MEDS: *HR* Enoxaparin 60 MG/0.6 ML SYRINGE SQ SCH (22:54)
[2021-09-11] MEDS: Ibuprofen 600 MG TABLET PO SCH (22:54)
[2021-09-11] MEDS: Acetaminophen 325 MG TABLET PO SCH (22:54)
[2021-09-12 04:47] LABS: Basophils % 0.1 %; Hematocrit 38.5 % (35.3-44.9); Hemoglobin 12.4 g/dL (11.5-15.4); Immature Granulocytes % 0.5 % (0-4); Lymphocytes # 2.2 K/mcL (0.6-4.6); Lymphocytes % 13.2 %; Mean Corpuscular HGB Conc 32.2 g/dL (31.6-35.5); Mean Corpuscular Hemoglobin 27.3 pg (28.0-33.3); Mean Corpuscular Volume 84.6 fL (83.0-100.0); Mean Platelet Volume 10.8 fL (9.4-12.4); Monocytes # 0.8 K/mcL (0.0-1.3); Monocytes % 5.1 %; Neutrophils # 13.3 K/mcL (1.6-8.9); Platelet Count 314 K/mcL (140-400); Red Blood Count 4.55 M/mcL (3.82-4.97); Red Cell Distribution Width 13.4 % (11.5-14.5); Segmented Neutrophils % 81.1 %
[2021-09-12 04:50] LABS: White Blood Count 16.4 K/mcL (4.3-11.1)
[2021-09-12] MEDS: Acetaminophen 325 MG TABLET PO SCH ×3 (05:55→23:37)
[2021-09-12] MEDS: Ibuprofen 600 MG TABLET PO SCH ×3 (05:55→23:36)
[2021-09-12] MEDS: Prenatal Vit/FA 1 EACH TABLET PO SCH (09:41)
[2021-09-12] MEDS: BuPROPion XL (24 HR) 150 MG TABLET PO SCH (09:41)
[2021-09-12] MEDS: *HR* Enoxaparin 60 MG/0.6 ML SYRINGE SQ SCH ×2 (09:42→20:08)
[2021-09-12 22:32] VITALS: TEMP 98.2
[2021-09-13] MEDS: Ibuprofen 600 MG TABLET PO SCH ×5 (05:43→21:19)
[2021-09-13] MEDS: Acetaminophen 325 MG TABLET PO SCH ×3 (05:44→18:11)
[2021-09-13] MEDS: BuPROPion XL (24 HR) 150 MG TABLET PO SCH (08:41)
[2021-09-13] MEDS: Prenatal Vit/FA 1 EACH TABLET PO SCH (08:41)
[2021-09-13] MEDS: *HR* Enoxaparin 60 MG/0.6 ML SYRINGE SQ SCH ×2 (08:42→21:20)
[2021-09-13] MEDS: *HR* HYDROcodone/Acet 5/325 mg TABLET PO PRN ×2 (15:54→21:20)
[2021-09-13 20:07] VITALS: BP 122/70; PULSE 89; O2SAT 99
[2021-09-14] MEDS: Acetaminophen 325 MG TABLET PO SCH (04:01)
[2021-09-14] MEDS: Ibuprofen 600 MG TABLET PO SCH (04:01)
[2021-09-14] MEDS: *HR* Enoxaparin 60 MG/0.6 ML SYRINGE SQ SCH (08:45)
[2021-09-14] MEDS: BuPROPion XL (24 HR) 150 MG TABLET PO SCH (08:45)
[2021-09-14] MEDS: Prenatal Vit/FA 1 EACH TABLET PO SCH (08:58)
== END 2021-09-14 14:22 | disposition home or self-care (01) | DRG 540 ==
LOC: 1NENULAB → 1NENUOBS 20:32
PROVIDERS: ADMIT Obstetrics & Gynecology; ATTEND Obstetrics & Gynecology